=== PATIENT | male | born 1985 | race Asian ===

== ENCOUNTER 2020-01-14 16:28 | Emergency (ER) | payer OTHER ==
[~2020-01-14] VITALS: Ht 177.8 cm; Wt 85.7 kg
[2020-01-14 16:46] VITALS: TEMP 99.1
[2020-01-14 18:14] VITALS: BP 138/99
== END 2020-01-14 18:14 | disposition home or self-care (01) ==
LOC: ED 16:28
DX: E11.42 Type 2 diabetes mellitus with diabetic polyneuropathy (principal); M79.671 Pain in right foot
CPT/HCPCS: 99282